=== PATIENT | female | born 1995 | race Two or more races ===

== ENCOUNTER 2018-11-09 17:30 | Emergency (ER) | payer MEDICAID, OTHER ==
[~2018-11-09] VITALS: Ht 154.9 cm; Wt 69.4 kg
[2018-11-09 17:41] VITALS: BP 110/59
[2018-11-09] MEDS: methylPREDNISolone SOD SUCC 125 MG/2 ML VL IM ONE ×2 (19:19→19:24)
== END 2018-11-09 20:00 | disposition home or self-care (01) ==
LOC: ER 17:30
DX: L50.9 Urticaria, unspecified (principal); T50.905A Adverse effect of unspecified drugs, medicaments and biological substances, initial encounter; Y92.89 Other specified places as the place of occurrence of the external cause
CPT/HCPCS: 99282; J2930

== ENCOUNTER 2019-02-22 14:30 | Observation (INO) | payer MEDICAID ==
[~2019-02-22] VITALS: Ht 154.9 cm; Wt 77.1 kg
[2019-02-22] MEDS ORDERED: LACTATED RINGER'S 1,000 ML IV ONE (15:15)
[2019-02-22] MEDS ORDERED: PREN-96 PO (15:19)
[2019-02-22] MEDS ORDERED: NIF10C PO (15:21)
[2019-02-22] MEDS: TERBUTALINE SULFATE 1 MG/ML 1ML VIAL SC SCH ×2 (15:37→17:02)
== END 2019-02-22 17:50 | disposition home or self-care (01) | DRG 566 ==
LOC: LDRP 14:30
PROVIDERS: ADMIT Specialist; ATTEND Specialist
DX: O26.893 Other specified pregnancy related conditions, third trimester (principal); R10.9 Unspecified abdominal pain; Z3A.35 35 weeks gestation of pregnancy
CPT/HCPCS: 59025; 81002; 96372; G0378; J3105; 96361

== ENCOUNTER 2019-02-28 10:10 | Observation (INO) | payer MEDICAID ==
[~2019-02-28 10:10] MED LIST: NIF10C PO; PREN-96 PO
== END 2019-02-28 11:34 | disposition home or self-care (01) | DRG 566 ==
LOC: LDRP 10:10
PROVIDERS: ADMIT Obstetrics & Gynecology; ATTEND Obstetrics & Gynecology
DX: O26.893 Other specified pregnancy related conditions, third trimester (principal); R10.2 Pelvic and perineal pain; Z3A.36 36 weeks gestation of pregnancy
CPT/HCPCS: 59025; 81002; G0378

== ENCOUNTER 2019-03-04 15:26 | Inpatient (IN) | payer MEDICAID ==
[~2019-03-04] VITALS: Ht 154.9 cm; Wt 77.1 kg
[2019-03-04] MEDS ORDERED: LACT. RINGERS/OXYTOCIN 20UNITS 1,000 ML IV SCH (16:13)
[2019-03-04] MEDS ORDERED: DERMOPLAST 60ML BOTTLE TOP PRN (16:15)
[2019-03-04] MEDS ORDERED: WITCH HAZEL-GLYCERIN PAD TOP PRN (16:15)
[2019-03-04] MEDS ORDERED: NALBUPHINE HCL 10 MG/1ml INJECTION IV PRN (16:15)
[2019-03-04] MEDS ORDERED: PHISODERM TOP SOLN 240ML BTL TOP PRN (16:15)
[2019-03-04] MEDS ORDERED: PENICILLIN G POT 5MIL/D5 50ML 50 ML IV ONE (16:45)
[2019-03-04 17:08] LABS: Basophils # (auto) 0.1 uL; Basophils % (auto) 0.8 % (0.0-2.0); Eosinophils # (auto) 0.1 uL; Eosinophils % (auto) 1.7 % (0.0-7.0); Hematocrit 38.8 % (36.0-46.0); Hemoglobin 13.2 g/dL (12.2-16.2); Lymphocytes # (auto) 2.1 uL; Mean Corpuscular Hemoglobin 29.3 pg (28.0-32.0); Mean Corpuscular Hgb Conc. 33.9 g/dL (32.0-36.0); Mean Corpuscular Volume 86.5 fL (80.0-100.0); Monocytes # (auto) 0.7 uL; Monocytes % (auto) 9.7 % (0.0-12.0); Neutrophils # (auto) 4.3 uL; Neutrophils % (auto) 58.8 % (37.0-80.0); Nucleated Red Blood Cells % 0.1 %; Platelet Count (auto) 172 10^3/uL (140-450); Red Blood Cells 4.49 10^6/uL (4.0-5.20); Red Cell Distribution Width 14.4 % (11.8-14.3); White Blood Cell 7.3 10^3/uL (4.4-10.8)
[2019-03-04 17:14] LABS: Urine Amorphous Crystal FEW /hpf (None Seen); Urine Bacteria FEW /hpf (None Seen); Urine Blood Negative /uL (Negative); Urine Specific Gravity 1.006 (1.001-1.035); Urine WBC 23 /hpf (0 - 5)
[2019-03-04] MEDS: LACTATED RINGER'S 1,000 ML IV SCH ×2 (17:16→22:10)
[2019-03-04 17:24] LABS: INR < 0.93 (0.9-1.15); Partial Thromboplastin Time 29.3 sec (23.64-32.05)
[2019-03-04 17:26] LABS: Albumin 2.7 g/dL (3.4-5.0); Calcium 8.3 mg/dL (8.5-10.1); Potassium 3.7 mmol/L (3.5-5.1)
[2019-03-04 17:28] LABS: Alcohol, Urine < 3.0 mg/dL (0-5); Amphetamine Screen, Urine NEGATIVE (NEGATIVE); Barbiturate Scree,Urine NEGATIVE (NEGATIVE); Benzodiazephine Screen, Urine NEGATIVE (NEGATIVE); Cannabinoid Screen, Urine NEGATIVE (NEGATIVE); Cocaine Screen, Urine NEGATIVE (NEGATIVE); Opiate Scree,Urine NEGATIVE (NEGATIVE); Phencyclidine Screen, Urine NEGATIVE (NEGATIVE)
[2019-03-04 17:29] LABS: Bilirubin, Total 0.3 mg/dL (0.2-1.0); Total Protein 6.4 g/dL (6.4-8.2)
[2019-03-04 17:40] LABS: Uric Acid 2.8 mg/dL (2.6-6.0)
[2019-03-04] MEDS ORDERED: PENICILLIN G POTASSIUM 2,500,000 UNITS in D5W 5% 50 ML IV SCH (20:45)
[2019-03-04] MEDS ORDERED: PROMETHAZINE HCL 25 MG/ML 1ML IM PRN (21:15)
[2019-03-04] MEDS ORDERED: PROMETHAZINE HCL 25 MG/ML 1ML ONE (21:21)
[2019-03-04] MEDS ORDERED: PROMETHAZINE HCL 25 MG/ML 1ML IV PRN (21:30)
[2019-03-04] MEDS ORDERED: LACTATED RINGER'S 500 ML IV ONE (21:50)
[2019-03-04] MEDS ORDERED: PENICILLIN G POT 5MILLION UNIT VIAL ONE (21:55)
[2019-03-04] MEDS ORDERED: fentaNYL CITRATE 100 MCG/2 ML VL IV ONE (22:00)
[2019-03-04] MEDS ORDERED: LIDOCAINE HCL 2 %PF INJ 10ML AMP IJ ONE (22:00)
[2019-03-04] MEDS ORDERED: fentaNYL W ROPIVACAINE 150 ML EPI SCH (22:00)
[2019-03-04] MEDS ORDERED: ePHEDrine SULFATE 50 MG/ML AMP IV ONE ×2 (22:00→23:00)
[2019-03-04] MEDS ORDERED: NALOXONE HCL 0.4 MG/ML VIAL IV ONE ×2 (22:00→23:00)
[2019-03-04] MEDS ORDERED: LIDOCAINE 2%HCL (LOCAL ANESTH.) INJ 20ML MDV ONE (23:19)
[2019-03-04] MEDS ORDERED: METHYLERGONOVINE MALEATE 0.2 MG/ML AMP IM ONE (23:44)
[2019-03-05] MEDS ORDERED: METHYLERGONOVINE MALEATE 0.2 MG/ML AMP IM ONE
[2019-03-05] MEDS ORDERED: LACT. RINGERS/OXYTOCIN 20UNITS 500 ML IV ONE (00:40)
[2019-03-05] MEDS ORDERED: ACETAMINOPHEN 325 MG TAB PO PRN (01:15)
[2019-03-05 02:30] VITALS: BP 102/55
[2019-03-05] MEDS: IBUPROFEN 600 MG TAB PO PRN ×2 (05:37→18:03)
[2019-03-05 07:30] VITALS: BP 97/54
[2019-03-05 10:51] VITALS: BP 106/52
[2019-03-05 15:00] VITALS: BP 106/53
[2019-03-05 19:30] VITALS: BP 98/51
[2019-03-05 23:00] VITALS: BP 98/54
[2019-03-06 03:00] VITALS: BP 96/49
[2019-03-06 07:30] VITALS: BP 104/54
[2019-03-06] MEDS: IBUPROFEN 600 MG TAB PO PRN (09:02)
[2019-03-06 12:21] VITALS: BP 107/60
[2019-03-07 16:26] LABS: RPR Non Reactive (Non Reactive)
== END 2019-03-06 12:30 | disposition home or self-care (01) | DRG 560 ==
LOC: LDRP 15:26 → OBSVTOIN 16:13
PROVIDERS: ADMIT Obstetrics & Gynecology; ATTEND Obstetrics & Gynecology
PROC: 10D07Z6 Extraction of Products of Conception, Vacuum, Via Natural or Artificial Opening (ICD-10-PCS; principal; 2019-03-04)
PROC: 3E0R3BZ Introduction of Anesthetic Agent into Spinal Canal, Percutaneous Approach (ICD-10-PCS; 2019-03-04)
PROC: 00HU33Z Insertion of Infusion Device into Spinal Canal, Percutaneous Approach (ICD-10-PCS; 2019-03-04)
DX: O60.14X0 Preterm labor third trimester with preterm delivery third trimester, not applicable or unspecified (principal); O69.81X0 Labor and delivery complicated by cord around neck, without compression, not applicable or unspecified; Z37.0 Single live birth; Z3A.36 36 weeks gestation of pregnancy
CPT/HCPCS: 36415; 59025; 76815; 80053; 80307; 81001; 81002; 84112; 84550; 85025; 85610; 85730; 86592; 86850; 86900; 86901; 96365; 96366; 96372; 96375; G0378; J2540; J2590; J3010; J7060

== ENCOUNTER 2024-05-17 08:17 | Emergency (ER) | payer SELFPAY ==
[~2024-05-17] VITALS: Ht 154.9 cm; Wt 76.4 kg
[~2024-05-17 08:17] MED LIST changes: -NIF10C PO
[2024-05-17 10:55] LABS: Urine Bacteria None Seen /hpf (None Seen)
[2024-05-17 11:06] LABS: Urine Blood Negative /uL (Negative); Urine Clarity Turbid (Clear); Urine Color Light-Yellow (Yellow); Urine Mucus FEW (None Seen); Urine Protein, UAD Negative (Negative); Urine Specific Gravity 1.023 (1.001-1.035); Urine Urobilinogen Normal (Negative); Urine WBC 22 /hpf (0 - 5); Urine pH 6.5 (5.0-9.0)
[2024-05-17] MEDS ORDERED: NITR-87 PO ×2 (11:45→16:58)
[2024-05-17] MEDS ORDERED: MAGNSUS48 PO ×2 (11:45→16:58)
[2024-05-17 12:31] VITALS: BP 110/59; TEMP 98.7
[2024-05-17 12:32] VITALS: PULSE 105; RESP 18; O2SAT 98
== END 2024-05-17 12:37 | disposition home or self-care (01) ==
LOC: ER 08:17
DX: N39.0 Urinary tract infection, site not specified (principal); K59.00 Constipation, unspecified
CPT/HCPCS: 74018; 81001; 81025

== ENCOUNTER 2024-07-19 20:53 | Emergency (ER) | payer MEDICAID ==
[~2024-07-19] VITALS: Ht 154.9 cm; Wt 72.0 kg
[~2024-07-19 20:53] MED LIST changes: +MAGNSUS48 PO; +NITR-87 PO
[2024-07-19] MEDS: ONDANSETRON ODT 4 MG TAB PO ONE (21:36)
[2024-07-19] MEDS: IBUPROFEN 600 MG TAB PO ONE (21:44)
[2024-07-19 22:30] LABS: COVID19 ANTIGEN SOFIA FIA NEGATIVE (NEGATIVE); Rapid Influenza A Negative (Negative); Rapid Influenza B Negative (Negative)
[2024-07-19 23:28] LABS: Urine Bacteria FEW /hpf (None Seen); Urine Blood Negative /uL (Negative); Urine Clarity Clear (Clear); Urine Color Light-Yellow (Yellow); Urine Protein, UAD Negative (Negative); Urine Specific Gravity 1.012 (1.001-1.035); Urine Urobilinogen Normal (Negative); Urine WBC 13 /hpf (0 - 5)
--- NOTE | 2024-07-19 23:51 | ED.PDOC ---
General HPI Comments This patient is a pleasant but obese 29-year-old female who arrives to the ED today with complaints of pelvic pain with intermittent fever and nausea for the past day. Additionally, patient states she is 5-6 weeks . Patient states the symptoms came on yesterday and have continued through today. Patient denies any vomiting but states intermittent nausea. Patient denies any vaginal discharge or vaginal bleeding. Patient had elevated temperature and mild tachycardia at arrival. Chief Complaint: Pelvic Pain Time Seen by MD: 21:01 Primary Care Provider: UNK Reviewed notes: Nurses Notes Allergies: Coded Allergies: NO KNOWN ALLERGIES (Unverified , 11/09/18) Home Meds Active Scripts Ondansetron Odt 4MG Tab (ZOFRAN PO) 4 Mg Tb, 4 MG PO Q6HP PRN, #20 TAB ODT TAB-DISSOLVE IN MOUTH, THEN SWALLOW Prov:ROSALBA MANN [facility] 07/20/24 Ibuprofen (Ibuprofen) 600 Mg Tab, 1 TAB PO Q6HP PRN, #20 TAB Prov:ROSALBA MANN [facility] 07/20/24 Acetaminophen (Acetaminophen) 500 Mg Tab, 500 MG PO Q4HP PRN, #30 TAB Prov:ROSALBA MANN [facility] 07/20/24 Sulfamethoxazole-Trimethoprim (Bactrim) 1 Tab Tab, 1 TAB PO BID for 5 Days, #10 TAB Prov:ROSALBA MANN [facility] 07/20/24 Nitrofurantoin Monohydrate Mac (Macrobid) 100 Mg Cap, 100 MG PO BID for 5 Days, #10 CAP Prov:ANTONELLA PADRON MD 05/17/24 Magnesium Hydroxide (Milk of Magnesia 400 mg/5Ml) 1 Joanie Joanie, 1 JOANIE PO 6XD PRN for 10 Days, #120 ML Prov:ANTONELLA PADRON MD 05/17/24 Reported Medications Vit W/ Ferrous Fumara ( One Daily) Daily Tab, 1 TAB PO DAILY, #90 TAB 3 Refills 02/22/19 Information Source: Patient Mode of Arrival: Ambulatory Severity: Moderate Timing: Days Duration: Since onset Prehospital treatment: None Onset: Spontaneous Symptoms: None History of: Other (Patient states she is currently five weeks ) Location: Abdomen associated signs and symptoms: Abdominal Pain, Nausea, Vomiting Past Medical History PAST MEDICAL HISTORY: Denies Past Medical History (Other): Patient states she is currently 5-6 weeks Surgical History: Denies all surgeries MARZIPAN MOLDER History: No Pertinent MARZIPAN MOLDER History Family History Family History: Unknown Social History Smoker: Non-Smoker Alcohol: Denies ETOH Use Drugs: Denies Drug Use Lives In: Home Constitutional: reports: fever, weakness; denies: chills, diaphoresis, fatigue, malaise, sweats, others EENTM: denies: blurred vision, double vision, ear bleeding, ear discharge, ear drainage, ear pain, ear ringing, eye pain, eye redness, hearing loss, mouth pain, mouth swelling, nasal discharge, nose bleeding, nose congestion, nose pain, photophobia, tearing, throat pain, throat swelling, voice changes, others Respiratory: denies: cough, hemoptysis, orthopnea, SOB at rest, shortness of breath, SOB with excertion, stridor, wheezing, others Cardiovascular: denies: chest pain, dizzy spells, diaphoresis, Dyspnea on exertion, edema, irregular heart beat, left arm pain, lightheadedness, palpita tions, PND, syncope, others Gastrointestinal: reports: abdominal pain, nausea; denies: abdomen distended, blood streaked bowels, constipated, diarrhea, dysphagia, difficulty swallowing, hematemesis, melena, poor appetite, poor fluid intake, rectal bleeding, rectal pain, vomiting, others Genitourinary: denies: abnormal vagina bleeding, burning, dyspareunia, dysuria, flank pain, frequency, hematuria, incontinence, pain, , vagina discharge, urgency, others Neurological: denies: dizziness, fainting, headache, left sided numbness, left sided weakness, numbness, paresthesia, pre-existing deficit, right sided numbness, right sided weakness, seizure, speech problems, tingling, tremors, weakness, others Musculoskeletal: denies: back pain, gout, joint pain, joint swelling, muscle pain, muscle stiffness, neck pain, others Integumetry: denies: bruises, change in color, change in hair/nails, dryness, laceration, lesions, lumps, rash, wounds, others Allergic/Immunocompromised: denies: Difficulty Healing, Frequent Infections, Hives, Itching, others Hematologic/Lymphatic: denies: anemia, blood clots, easy bleeding, easy bruising, swollen glands, others Endocrine: denies: excessive hunger, excessive sweating, excessive thirst, excessive urination, flushing, intolerance to cold, intolerance to heat, unexpla ined weight gain, unexplained weight loss, others Psychiatric: denies: anxiety, bipolar disorder, depression, hopeless, panic disorder, schizophrenia, sleepless, suicidal, others Physical Exam General Appearance: Moderate Distress (Patient appears to be in [id number] distress at time of evaluation.), Obese HEENT: Normal ENT Inspection, Pharynx Normal, TMs Normal Neck: Full Range of Motion, Non-Tender, Normal, Normal Inspection Respiratory: Chest Non-Tender, Lungs Clear, No Accessory Muscle Use, No Respiratory Distress, Normal Breath Sounds Cardiovascular: No Edema, No JVD, No Murmur, No Gallop, Normal Peripheral Pulses, Regular Rate/Rhythm Breast Exam: Deferred Gastrointestinal: Other (Diffuse bilateral lower abdominal/pelvic tenderness to palpation. Left-sided greater than right. Difficult to assess due to body habi tus.) Genitalia: Deferred Pelvic: Deferred Rectal: Deferred Extremities: No calf tenderness, Normal capillary refill, Normal inspection, Normal range of motion, Non-tender, No pedal edema Neurologic: Alert, No Motor Deficits, Normal Affect, Normal Mood, No Sensory Deficits Cerebellar Function: Normal Reflexes: Normal Skin: Dry, Normal Color, Warm Lymphatic: No Adenopathy Was a procedure done? Was a procedure done?: No Differential Diagnosis Kidney stone (Female): Other (COVID 19, influenza a/B, UTI, ), N/A X-Ray, Labs, Meds, VS Vital Signs Date Time Temp Pulse Resp B/P (MAP) Pulse Ox O2 Delivery O2 Flow Rate FiO2 07/20/24 00:20 99.0 07/20/24 00:12 85 16 103/62 (76) 98 07/19/24 21:44 84 18 97 Room Air 07/19/24 21:44 100.2 84 18 118/71 (87) 97 100.2 07/19/24 21:44 100.2 07/19/24 21:09 100.2 115 20 108/74 (85) 97 Lab Test 07/19/24 21:47 07/19/24 21:39 07/19/24 21:00 Range/Units Influenza Type A Antigen Negative Negative Influenza Type B Antigen Negative Negative SARS-CoV-2 Antigen (Rapid) Negative NEGATIVE Beta HCG, Quantitative 2000.5 H 1.5-4.2 mIU/mL Urine Color Light-yellow Yellow Urine Clarity Clear Clear Urine pH 7.0 5.0-9.0 Urine Specific [place] 1.012 1.001-1.035 Urine Protein Negative Negative Urine Ketones Negative Negative Urine Blood Negative Negative /uL Urine Nitrite Negative Negative Urine Bilirubin Negative Negative Urine Urobilinogen Normal Negative mg/dL Urine Leukocyte Esterase 2+ Negative /uL Urine RBC 3 0 - 4 /hpf Urine WBC 13 0 - 5 /hpf Urine Squamous Epithelial Cells Few <5 /hpf Urine Bacteria Few H None Seen /hpf Urine Glucose Normal Normal mg/dL Current Medications Medications (Trade) Dose Ordered Sig/Brenda Route Start Time Stop Time Status Last Admin Ibuprofen (Motrin Tablet) 600 mg ONCE ONCE PO 07/19/24 21:30 07/19/24 21:31 DC 07/19/24 21:44 X-Ray, Labs, Meds, VS Comment All studies performed the ED today were evaluated by me personally. Swabs were unremarkable for COVID or influenza, but urine returned a positive urinary tract infection. Patient's beta-hCG was 1999 which seems low for a five week . Advised the patient utilize antibiotics as directed and additionally, patient should return to ED in three days for re-evaluation of beta-hCG. 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 Patient's beta-hCG today was 1999. e-Prescriptions Cephalexin (KEFLEX CAPSULE) 250 Mg Cp 1 CAP PO QID for 5 Days, #20 CAP Prov: ROSALBA MANN [facility] 07/20/24 Ondansetron Odt 4MG Tab (ZOFRAN PO) 4 Mg Tb 4 MG PO Q6HP PRN, #20 TAB ODT TAB-DISSOLVE IN MOUTH, THEN SWALLOW Prov: ROSALBA MANN [facility] 07/20/24 Ibuprofen (Ibuprofen) 600 Mg Tab 1 TAB PO Q6HP PRN, #20 TAB Prov: ROSALBA MANN [facility] 07/20/24 Acetaminophen (Acetaminophen) 500 Mg Tab 500 MG PO Q4HP PRN, #30 TAB Prov: ROSALBA MANN PAC 07/20/24 Discharged With: Self, Friend Critical Care Note Critical Care Time?: No Stability Stability form required: No Heart Score Heart Score: Heart Score Response (Comments) Value History N/A 0 EKG N/A 0 Age N/A 0 Risk Factors N/A 0 Troponin N/A 0 Total 0 ROSALBA MANN PAC Jul 19, 2024 23:51
[2024-07-20] MEDS ORDERED: SULFAMETHOX W/TRIMETH(800/160MG) DS TAB PO ONE
[2024-07-20] MEDS ORDERED: SULF400T11 PO (00:01)
[2024-07-20] MEDS ORDERED: IBUP-1454 PO (00:01)
[2024-07-20] MEDS ORDERED: ZOFR4T PO (00:01)
[2024-07-20] MEDS ORDERED: ACET500T58 PO (00:01)
[2024-07-20 00:12] VITALS: BP 103/62; PULSE 85; RESP 16; O2SAT 98
[2024-07-20 00:20] VITALS: TEMP 99
[2024-07-20] MEDS ORDERED: CEPH250C PO (00:22)
[2024-07-20] MEDS: CEPHALEXIN 250 MG CAP PO ONE (00:27)
== END 2024-07-20 00:26 | disposition home or self-care (01) ==
LOC: ER 20:53
DX: O23.31 Infections of other parts of urinary tract in pregnancy, first trimester (principal); Z3A.01 Less than 8 weeks gestation of pregnancy; Z79.899 Other long term (current) drug therapy; Z20.822 Contact with and (suspected) exposure to COVID-19
CPT/HCPCS: 36415; 81001; 84702; 87426; 87804

== ENCOUNTER 2024-07-22 16:24 | Emergency (ER) | payer MEDICAID ==
[~2024-07-22] VITALS: Ht 154.9 cm; Wt 76.0 kg
[~2024-07-22 16:24] MED LIST changes: +ACET500T58 PO; +CEPH250C PO; +IBUP-1454 PO; +ZOFR4T PO
[2024-07-22 16:37] VITALS: BP 116/71; PULSE 106; RESP 18; O2SAT 96
== END 2024-07-22 19:09 | disposition left against medical advice (07) ==
LOC: ER 16:24
DX: N93.9 Abnormal uterine and vaginal bleeding, unspecified (principal); Z53.21 Procedure and treatment not carried out due to patient leaving prior to being seen by health care provider